=== PATIENT | male | born 1985 | race Caucasian/White ===

== ENCOUNTER 2020-09-08 23:37 | Observation (INO) | payer SELFPAY ==
[2020-09-08 23:48] VITALS: BP 143/90; PULSE 82; RESP 16; TEMP 36.8; O2SAT 99
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
--- NOTE | 2020-09-09 00:08 | NUR.NOTE ---
Pt refusing to have labs drawn or give urine sample. Refusing to change into paper clothes. Silk Conditioner in to audie pt. Per Dr Dejesus ok to stay in own clothes. CPSO at door. Room locked down per protocol.
[2020-09-09 01:18] LABS: Source Nasopharynx
[2020-09-09] MEDS: clonazePAM 1 MG TAB 4 MG PO ×2 (01:24→11:58)
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
[2020-09-09 01:52] LABS: *AMPHETAMINES SCREEN URINE Negative (Negative); *BARBITURATES SCREEN URINE Negative (Negative); *BENZODIAZEPINES SCREEN URINE Negative (Negative); Cannabinoids THC POSITIVE (Negative); Cocaine Screen,Urine Negative (Negative); METHADONE URINE SCREEN Negative (Negative); OPIATES URINE SCREEN Negative (Negative)
[2020-09-09 01:59] LABS: Influenza A PCR Negative (Negative); Influenza B PCR Negative (Negative); RSV PCR Negative (Negative)
[2020-09-09 02:03] LABS: Tricyclic Antidepressants Negative (Negative)
[2020-09-09 02:06] LABS: COVID-19 PCR Negative (Negative)
[2020-09-09] MEDS: Ibuprofen 800 MG TAB PO (02:37)
[2020-09-09] MEDS: Acetaminophen 500 MG TAB 1000 MG PO (02:37)
[2020-09-09] MEDS: LORazepam 1 MG TAB PO (02:42)
--- NOTE | 2020-09-09 02:43 | NUR.NOTE ---
Pt alert, asking for pain meds for cracked right lower tooth. States had abscess in the past, hasn't been able to see dentist. Mild redness to gums noted. med a/o. Med with ativan a/o as pt remains awake and states not tired.
--- NOTE | 2020-09-09 02:45 | NUR.NOTE ---
Pt provided with snack, multiple drinks.
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
[2020-09-09 04:53] VITALS: PULSE 83; RESP 16; O2SAT 94
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
--- NOTE | 2020-09-09 12:28 | CMPROGNOTE_ITS ---
- If Service Date Differs Date of service: 09/09/20 Time of Service: 12:28 Care Management Progress Note S/O: CM is unable to meet with Martín, as he is currently considered a PUI. CM received a phone call from Martín's father, Parveen, who provides the following background information: Dad reports Martín grew up in [place] and graduated from [employer]. After graduation, he went on to college and obtained a bachelor's degree. Dad says Martín smoked marijuana and drank alcohol but denies that substance use was a problem until he began huffing nitrous oxide to a great extent approximately 4 years ago. Martín experienced his first psychotic break at the age of 31 and has since been hospitalized numerous times at [facility], [facility], [facility], in addition to being inpatient at a few out of state psychiatric facilities. Dad reports prior to the psychotic break, Martín had no history of mental health treatment or violent behaviors. CM will continue to follow. A: Martín is a 35 year old male who remains at [facility] on involuntary status awaiting a psychiatric placement. P: A referral is faxed to [facility] for review. All other [facility] are full. Martín will remain at [facility] on involuntary status while [facility] and the Dept of continue to seek placement for him. CM will continue to follow.
--- NOTE | 2020-09-09 13:53 | CMSP_ITS ---
- If Service Date Differs Date of service: 09/09/20 Time of Service: 13:53 Care Management Safety Plan INVOLUNTARY FOR INPATIENT PSYCHIATRIC STABILIZATION. Safety plan has been established to meet the needs of the patient, and consideration of the care team, to adhere to patient goals, identify restrictions based on behavioral status, address nutrition, and determine allowed personal belongings, tools for hygiene and personal care. Determine level of activity including ambulation, level of supervision, visitors, and determine privileges based on behaviors and level of engagement by pt. SAFETY PLAN: 1. Will remain on SI/HI precautions. May wear his own clothes after wanding by bianka. 2. Will remain in room under direct supervision of one-on-one staff at all times provided by CPSO, NEMO, BOX TOE STITCHER profile mill operator tape control. 3. May have paper cups, plates, finger foods as well as a cardboard spoon with which to eat meals. 4. Follow [facility] Management of the Admitted Behavioral Health Patient policy. 5. Comfort bath system only. 6. No personal belongings 7. Visitors: none at this time 8. Activities: may watch tv 9. Bathroom privileges with supervision 10. Phone: None at this time 11. Due to INVOLUNTARY status, patient is being held at [facility] by the Department of Mental Health ([facility]) until 2nd certification by [facility] Psychiatrist can be performed (within 24 hours). Staff will provide de-escalation support (CPI) as needed. If patient wishes to leave [facility], staff will contact [facility] Crisis Screener ([phone]) and On-Call Tiller Man ([phone]) as soon as possible. In the event of elopement, notify [facility] Police ([phone]). Patient is currently involuntarily at [facility]. [facility] Frontline Milk Receiver Tank Truck will continue seeking placement. Please contact the Power Wood Sawyer Tiller Man ([phone]) for any needed changes to Safety Plan. Safety plan has been provided to interdepartmental care team. Patient will be transported by coating engineer at time of discharge.
--- NOTE | 2020-09-09 13:53 | PDOC.CMSAFE ---
- If Service Date Differs Date of service: 09/09/20 Time of Service: 13:53 Care Management Safety Plan INVOLUNTARY FOR INPATIENT PSYCHIATRIC STABILIZATION. Safety plan has been established to meet the needs of the patient, and consideration of the care team, to adhere to patient goals, identify restrictions based on behavioral status, address nutrition, and determine allowed personal belongings, tools for hygiene and personal care. Determine level of activity including ambulation, level of supervision, visitors, and determine privileges based on behaviors and level of engagement by pt. SAFETY PLAN: 1. Will remain on SI/HI precautions. May wear his own clothes after wanding by bianka. 2. Will remain in room under direct supervision of one-on-one staff at all times provided by CPSO, NEMO, SCREENING TECH coding educator. 3. May have paper cups, plates, finger foods as well as a cardboard spoon with which to eat meals. 4. Follow [facility] Management of the Admitted Behavioral Health Patient policy. 5. Comfort bath system only. 6. No personal belongings 7. Visitors: none at this time 8. Activities: may watch tv 9. Bathroom privileges with supervision 10. Phone: None at this time 11. Due to INVOLUNTARY status, patient is being held at [facility] by the Department of Mental Health ([facility]) until 2nd certification by [facility] Psychiatrist can be performed (within 24 hours). Staff will provide de-escalation support (CPI) as needed. If patient wishes to leave [facility], staff will contact [facility] Crisis Screener ([phone]) and On-Call Instructor Correspondence School ([phone]) as soon as possible. In the event of elopement, notify [facility] Police ([phone]). Patient is currently involuntarily at [facility]. [facility] Frontline Slurry Tank Operator will continue seeking placement. Please contact the Facsimile Machine Operator Instructor Correspondence School ([phone]) for any needed changes to Safety Plan. Safety plan has been provided to interdepartmental care team. Patient will be transported by deputy sheriff at time of discharge.
--- NOTE | 2020-09-09 14:15 | PHA.REVIEW ---
Pharmacy Admission Review - Admission Clinical Review (Last Reviewed 09/09/20 @ 06:37 by Kenny Fletcher) Psychotic episode (Acute) haloperidol [From Haldol] Allergy (Unverified 09/08/20 23:46) Other (See Comment) Height 6 ft Weight 113.398 kg - Renal Dosing Renal Dosing: BUN Cancelled 09/08/20 23:47 Creatinine Cancelled 09/08/20 23:47 Medications needing adjustments: N/A (no labs done) - Anticoagulation Anticoagulation: Hgb Cancelled 09/08/20 23:47 Hct Cancelled 09/08/20 23:47 Plt Count Cancelled 09/08/20 23:47 Creatinine Cancelled 09/08/20 23:47 DVT Prohphylaxis: N/A Therapeutic Anticoagulation: N/A - Opiate Usage Evaluate Pain Scale/Pains Meds: N/A - Relevant Labs Sodium Cancelled 09/08/20 23:47 Potassium Cancelled 09/08/20 23:47 Chloride Cancelled 09/08/20 23:47 Electrolytes, C-Reactive P, ESR: N/A (no labs done) - DM Control DM Control: Glucose Cancelled 09/08/20 23:47 Insulin Dosing: N/A (no labs done) - Heart Failure/CT EF%, DEL's, B-Blockers, Diuretics: N/A - BP Control If elevated: Reviewed (BP elevated last night, no values taken so far today) - Qtc Review If Elevated: N/A - IV to PO Switch IV Medications: Reviewed - Home Meds Home Med List reviewed: Intervened (Looked at [facility]/called previous pharmacy to check on dosage of clonazepam. Per coordinator pt has been in/out of psych facilities so she tried to get updated med list from most recent admission, but may not be accurate. Olanzapine may enhance the adverse/toxic effect of clonazepam, avoid combination.) Relevent Home Meds Not ordered & why?: aripiprazole, clonidine, divalproex, olanzapine - Current meds Current Medication Order Review: Reviewed - Comments Comments/Follow Ups: Watch VS, labs and for med changes.
--- NOTE | 2020-09-09 14:53 | PDOC.MHCN ---
Date of service: 09/09/20 Time of Service: 10:30 Mental Health Crisis Note Presenting Issue How did you arrive at the ED and why did you come: Client arrived at ER via police escort. Client was brought to ER for mental health assessment. Precipitating Factors Client denied SI/HI. However, client made homicidal statement towards his girlfriend. Disposition BEHAVIOR: Client presented as rude, oppositional,defensive and impulsive. EYE CONTACT: Client did not maintain eye contact MOOD: Client presented with angry and agitated mood. AFFECT: Client presented with full affect. APPETITE: Unknown. This chief underwriter was unable to assess because client abruptly ended the assessment SLEEP(trouble falling/staying asleep: Unknown. This chief underwriter was unable to assess because client abruptly ended the assessment Plan Client is currently on EE status at [facility] and awaiting placement for in-patient psychiatric treatment. Client will remain on EE status till he is reassessed for second certification. A decision will be made then. Signature Clinician's Name/Title: Catherine Akers Emergency Services Clinician
--- NOTE | 2020-09-09 21:29 | NUR.NOTE ---
Nursing Note: Attempted to administer evening medications to pt. Pt agreed before opening medications to take them. Pt was asked if he preferred taking medications one at a time or all together, to which pt replied one at a time. Pt's divalproex 500mg was opened first to give to the pt, which he threw across the room. Pt requested the next medication, which was 5mg of the 15mg of olanzapine, that he also threw across the room. At this time, pt requested the remaining olanzapine and clonazepam, to which I refused and exited the room. 10mg of olanzapine and 1mg of clonazepam returned to pyxis; divalproex 500mg wasted in swamp; 5mg of olanzapine unable to be found.
--- NOTE | 2020-09-10 03:32 | NUR.NOTE ---
Nursing Note: Pt left room around 03:15 to ask CPSOs in hallway for his evening meds that he had refused and/or thrown at 22:00. This RN pulled the only available medication, olanzapine, for his HS scheduled and PRN for a total of 20mg. This RN scanned all meds and opened them to bring to the pt as he had requested his meds. When given meds, pt then refused to take them. This RN took all 4 tablets back and disposed of them in swamp. The meds were wasted in the pyxis.
--- NOTE | 2020-09-10 10:59 | W.INMHPGNOTE ---
Date of service: 09/10/20 Time of Service: 10:59 Mental Health Crisis Note Presenting Issue How did you arrive at the ED and why did you come: Martín arrived this past weekend he said via his girlfriend who he states now is his ex. She had concerns about his behaviors and was afraid of what he might do. Martín was actually sent via [facility] and [facility] as an incapacitated person an we were contacted via corrections who had concerns he was experiencing a psychotic episode. Precipitating Factors Martín reports that he does not know why he is here but that it was all lies. I was unable to assess for SI and HI because he ended the call stating this conversation is done. Disposition BEHAVIOR: Martín is described as refusing medications and goes from being nice to staff to being absolutely rude. He is often pacing in his room talking to himself non-sensical topics. He is reported to have asked for his meds yesterday and when the nurse came back to give them to him he took the meds and threw them across the room. He is easily agitated. Today he moderately engaged but mostly through head shakes and denying any reason why he is there. He is breathing hard similar to Maxime Paz. He holds his balnket up to his face and looks at the screen toward this clinician but mostly does not engage in in-depth conversations. However, he was on longer wiht this clinician that clinicians in the past. EYE CONTACT: Moderate eye contact was made. MOOD: See above description from Eligibility Analyst. AFFECT: Flat APPETITE: Not answered when asked. SLEEP(trouble falling/staying asleep: Not answered when asked but was sleeping when assessment began. Plan [facility] will continue to seek placement for Martín. Signature Clinician's Name/Title: Magdalena Silva MS, [facility] Emergency Services Clinician
[2020-09-10] MEDS: clonazePAM 1 MG TAB PO ×2 (11:45→19:35)
--- NOTE | 2020-09-10 15:07 | PDOC.CMPRO ---
- If Service Date Differs Date of service: 09/10/20 Time of Service: 15:07 Care Management Progress Note S/O: CM remains unable to meet with Martín due to his PUI status. Martín met with Dr. Pascual Anderson, psychiatrist, via telehealth last evening for the Second Certification by Psychiatrist. Dr. Anderson deemed Martín to be in need of inpatient treatment and signed the Second Certification. Today, Martín met with Magdalena [facility] Crisis Screener, via zoom. He denied knowing why he's at the hospital, stated everything that has been reported about him is all lies, and terminated the call by saying the conversation was done. CM will continue to follow. A: Martín is a 35 year old male who remains at [facility] on involuntary status awaiting a psychiatric placement. P: [facility]. Martín will remain at [facility] on involuntary status while [facility] and the Dept of continue to seek placement for him. Late afternoon, CM receives a call from Kiana of the [facility] who advises they anticipate accepting Martín for admission tomorrow morning. CM will continue to follow.
--- NOTE | 2020-09-10 18:32 | CMSP_ITS ---
- If Service Date Differs Date of service: 09/10/20 Time of Service: 15:25 Care Management Safety Plan INVOLUNTARY FOR INPATIENT PSYCHIATRIC STABILIZATION. Safety plan has been established to meet the needs of the patient, and consideration of the care team, to adhere to patient goals, identify restrictions based on behavioral status, address nutrition, and determine allowed personal belongings, tools for hygiene and personal care. Determine level of activity including ambulation, level of supervision, visitors, and determine privileges based on behaviors and level of engagement by pt. SAFETY PLAN: 1. Will remain on SI/HI precautions. May wear his own clothes after wanding by bianka. 2. Will remain in room under direct supervision of one-on-one staff at all times provided by CPSO, NEMO, JEWEL STRINGER street openings inspector. 3. May have paper cups, plates, finger foods as well as a cardboard spoon with which to eat meals. 4. Follow [facility] Management of the Admitted Behavioral Health Patient policy. 5. Comfort bath system only. 6. No personal belongings 7. Visitors: none at this time 8. Activities: may watch tv 9. Bathroom privileges with supervision 10. Phone: None at this time 11. Due to INVOLUNTARY status, patient is being held at [facility] by the Department of Mental Health ([facility]) until 2nd certification by [facility] Psychiatrist can be performed (within 24 hours). Staff will provide de-escalation support (CPI) as needed. If patient wishes to leave [facility], staff will contact [facility] Crisis Screener ([phone]) and On-Call Propeller Mechanic ([phone]) as soon as possible. In the event of elopement, notify [facility] Police ([phone]). Patient is currently involuntarily at [facility]. [facility] Frontline Rehabilitation Services Counselor will continue seeking placement. Please contact the Lathe Winder Propeller Mechanic ([phone]) for any needed changes to Safety Plan. Safety plan has been provided to interdepartmental care team. Patient will be transported by dice spotter at time of discharge.
--- NOTE | 2020-09-10 18:32 | PDOC.CMSAFE ---
- If Service Date Differs Date of service: 09/10/20 Time of Service: 15:25 Care Management Safety Plan INVOLUNTARY FOR INPATIENT PSYCHIATRIC STABILIZATION. Safety plan has been established to meet the needs of the patient, and consideration of the care team, to adhere to patient goals, identify restrictions based on behavioral status, address nutrition, and determine allowed personal belongings, tools for hygiene and personal care. Determine level of activity including ambulation, level of supervision, visitors, and determine privileges based on behaviors and level of engagement by pt. SAFETY PLAN: 1. Will remain on SI/HI precautions. May wear his own clothes after wanding by bianka. 2. Will remain in room under direct supervision of one-on-one staff at all times provided by CPSO, NEMO, CLOTH BLEACHING RANGE OPERATOR CHIEF correctional food service supervisor. 3. May have paper cups, plates, finger foods as well as a cardboard spoon with which to eat meals. 4. Follow [facility] Management of the Admitted Behavioral Health Patient policy. 5. Comfort bath system only. 6. No personal belongings 7. Visitors: none at this time 8. Activities: may watch tv 9. Bathroom privileges with supervision 10. Phone: None at this time 11. Due to INVOLUNTARY status, patient is being held at [facility] by the Department of Mental Health ([facility]) until 2nd certification by [facility] Psychiatrist can be performed (within 24 hours). Staff will provide de-escalation support (CPI) as needed. If patient wishes to leave [facility], staff will contact [facility] Crisis Screener ([phone]) and On-Call Operator Maintainer ([phone]) as soon as possible. In the event of elopement, notify [facility] Police ([phone]). Patient is currently involuntarily at [facility]. [facility] Frontline Gathering Machine Setter will continue seeking placement. Please contact the Executive Associate Operator Maintainer ([phone]) for any needed changes to Safety Plan. Safety plan has been provided to interdepartmental care team. Patient will be transported by fur finisher tailor at time of discharge.
[2020-09-10] MEDS: clonazePAM 1 MG TAB 4 MG PO (21:00)
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
[2020-09-10] MEDS: Ziprasidone 20 MG VIAL IM (22:00)
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
--- NOTE | 2020-09-10 23:30 | NUR.NOTE ---
Nursing Note: Spoke to CC in charge (Elida Chen) regarding events.Approximately [address] Palma regarding incident without a response. [facility] called with myself, Elida and Dr. Buckner regarding the case coordinator note supporting the patient to be in the ED until his transport tomorrow morning. Dr. Buckner discussed issue with Dr. Palma and an attempt was made to move the patient to the ED for closer monitoring due to possible increased sedation. ED MD at the time consulted with Dr. Michel the biomedical equipment support specialist who then called the Nursing hairspring fabrication supervisor who had joined the huddle. The care team discussed options that would be best for the patient. Recommendations by Dr. Michel was to keep the patient restrained in the transition bed, and heavily sedate if needed. Discussion regarding moving the patient to the ICU instead of the ED but both Dr. Michel and Dr. Buckner made the decision to leave the patient sedated and restrained in the transition bed. Request made to nursing hairspring fabrication supervisor to have a second client services director in house in the event the staff need further support.
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
--- NOTE | 2020-09-11 04:14 | W.RSTF2F ---
Date of service: 09/11/20 Time of Service: 04:11 Restraint Face to Face Time of Face to Face 4th Face to Face: Time of Face to Face: 04:07 Patient's Immediate Situation Requiring Restraints/Seclusion: Harm to Staff & Others Patient Response to Restraints: Tolerating with minimum Problems Patient's Medical & Behavioral Condition: patient now awake, currently resting comfortably. He denies pain. He declines medication. At this point, I don't think we need to give him medication against his will, but with previous behavior he is still a significant risk to harm staff, so we must continue physical restraints Need for Continuation of Restraints Has Been Assessed: Restraints Continued
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
--- NOTE | 2020-09-11 07:07 | W.RSTF2F ---
Date of service: 09/11/20 Time of Service: 07:07 Restraint Face to Face Time of Face to Face 6th Face to Face: Time of Face to Face: 07:07 Patient's Immediate Situation Requiring Restraints/Seclusion: Harm to Staff & Others Patient Response to Restraints: Tolerating without Problems Patient's Medical & Behavioral Condition: sleeping comfortably. For staff safety restraints not removed until additional security help immediately available, should be transferred to secure psychiatric facility Need for Continuation of Restraints Has Been Assessed: Restraints Continued
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
--- NOTE | 2020-09-11 09:41 | NUR.NOTE ---
pt report given to Laney YANG and Kylee. Pt discharged at 0938. Nursing Note:
--- NOTE | 2020-09-11 10:06 | PDOC.CMDIS ---
- If Service Date Differs Date of service: 09/11/20 Time of Service: 10:06 LACE Index Scoring Tool - Questions: Length of Stay (in days): 3 Acuity (Admit via E.D.?): Yes E.D. Visits: 0 - Answers: Total Score: 6 Risk of Readmission: Low Risk Care Management Discharge Reason for Hospitalization: Acute Psychotic Episode. Discharge Plan: Martín is transferred today to [facility] for psychiatric stabilization. Transportation to [place] is provided by [facility]. Patient/Family Education Needs: Discharge education, expectation, and plan for transfer. Services Needed at Discharge: Psychiatric Facility ([facility]), Transportation ([facility])
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
== END 2020-09-11 09:38 | disposition short-term general hospital (02) ==
LOC: ER 09-09 04:07 → MS 09-09 04:46
PROVIDERS: Admitting Provider Family Medicine; Emergency Provider Student in an Organized Health Care Education/Training Program; Visit Provider Family Medicine
DX: F23 Brief psychotic disorder (principal); F31.0 Bipolar disorder, current episode hypomanic; Z78.1 Physical restraint status; Z91.14 Patient's other noncompliance with medication regimen
CPT/HCPCS: 80053; 80307; 99219; 99238; 99285; NC; 80320; 80329; 82140; 84443; 85025; 99217; 99283; G0378; J3486